=== PATIENT | male | born 1960 | race Caucasian/White ===

== ENCOUNTER 2016-08-03 20:22 | Emergency (ER) | payer OTHER ==
[2016-08-03 20:29] VITALS: BP 184/96
[2016-08-03] MEDS ORDERED: BUFFERED LIDOCAINE 10 ML SYRINGE ONE (20:40)
[2016-08-03] MEDS ORDERED: HYDROcod/ACET 5/325 Prepack 6 PO STA (20:55)
[2016-08-03] MEDS ORDERED: CEPHALEXIN 250 MG Prepack 8 PO STA (20:56)
--- NOTE | 2016-08-03 20:58 | ED Physician Documentation ---
PD HPI SKIN - Stated complaint Stated Complaint: CYST ON BACK - Chief complaint Chief Complaint: Wound - History obtained from History obtained from: Patient - History of Present Illness Timing - onset: Other (He has a recurrent sebaceous cyst on the left flank that gets infected about every 6 years and needs to be incised and drained at that point. He denies any fevers. He has been bothering him for about a week and a half.) Review of Systems Constitutional: denies: Fever, Chills Nose: reports: Reviewed and negative Throat: reports: Reviewed and negative Cardiac: reports: Reviewed and negative PD PAST MEDICAL HISTORY - Past Medical History Cardiovascular: Hypertension Endocrine/Autoimmune: Type 2 diabetes Musculoskeletal: Gout, Chronic back pain - Past Surgical History Past Surgical History: Yes Ortho: ACL reconstruction, Spine surgery - Present Medications Home Medications: Ambulatory Orders Medication Instructions Recorded Confirmed Allopurinol DAILY 10/11/13 10/11/13 Clonidine HCl 0.3 mg DAILY 10/11/13 10/11/13 Dexamethasone [Decadron] 4 mg PO DAILY #5 tablet 10/11/13 Hydrochlorothiazide 25 mg DAILY 10/11/13 10/11/13 Lisinopril 80 mg DAILY 10/11/13 10/11/13 Metformin HCl 500 mg BID 10/11/13 10/11/13 Methocarbamol [Robaxin] 500 mg PO Q6H PRN #30 tablet 10/11/13 Oxycodone HCl/Acetaminophen 1 each PO Q6H PRN #25 tablet 10/11/13 [Percocet 5-325 mg Tablet] Simvastatin 40 mg DAILY 10/11/13 10/11/13 Cephalexin [Keflex] 500 mg PO QID #40 capsule 08/03/16 - Allergies Allergies/Adverse Reactions: Allergies Allergy/AdvReac Type Severity Reaction Status Date / Time Penicillins Allergy Rash Verified 10/11/13 15:17 - Social History Does the pt smoke?: No Smoking Status: Never smoker Does the pt drink ETOH?: No Does the pt have substance abuse?: No PD ED PE NORMAL - Vitals Vital signs reviewed: Yes - General General: Alert and oriented X 3, No acute distress - Derm Derm: Other (On the left upper flank there is a very large pointed sebaceous cyst with overlying cellulitis) - Neuro Neuro: Alert and oriented X 3, Normal speech Results - Vitals Vitals: Vital Signs - 24 hr 08/03/16 20:25 Temperature 36.5 C Heart Rate 89 Respiratory 17 Rate Blood Pressure 184/96 H O2 Saturation 97 Oxygen O2 Source Room air - Labs Labs: Microbiology 08/03/16 21:06 Wound Culture - Preliminary Abscess Procedures - Abscess I&D (location) trunk Preparation: Betadine, Lidocaine 1% Incision: Incised with scalpel, Purulent drainage, Loculations broken, Culture obtained. No: Packed (pt refused) Other: Pt tolerated well, Dressing applied, Antibiotic prescribed Departure - Departure Disposition: Home, Self Care Clinical Impression: Sebaceous cyst Condition: Good Record reviewed to determine appropriate education?: Yes Instructions: ED Cyst Sebaceous Infec IandD Prescriptions: Cephalexin [Keflex] 500 mg PO QID #40 capsule Comments: Wound check with your physician in 2-4 days, return if worse, if you run a fever. As we discussed we will culture your wound, this results should be done in 48- 72 hours. If an antibiotic change is necessary we will call you. Return if worse in the meantime, especially if you develop increased pain or fevers or cannot keep down the medication. Your blood pressure was elevated today on check in to the emergency department. This does not mean that you have hypertension, it is a common phenomenon to check into the emergency department and have elevated blood pressure. I recommend that you see your primary care physician within the week to have it rechecked when you're feeling better. Discharge Date/Time: 08/03/16 21:11
[2016-08-03] MEDS ORDERED: CEPHALEXIN 250 MG Prepack 8 PO ONE (21:06)
[2016-08-03] MEDS ORDERED: HYDROcod/ACET 5/325 Prepack 6 PO ONE (21:06)
== END 2016-08-03 21:11 | disposition home or self-care (01) ==
LOC: ED 20:22
DX: L72.3 Sebaceous cyst (principal); R03.0 Elevated blood-pressure reading, without diagnosis of hypertension; E11.9 Type 2 diabetes mellitus without complications; Z79.84 Long term (current) use of oral hypoglycemic drugs; M10.9 Gout, unspecified
CPT/HCPCS: 10060; 87070; 87205; 99283

== ENCOUNTER 2017-06-12 13:40 | Inpatient (IN) | payer OTHER ==
--- NOTE | 2017-06-12 13:53 | ED Physician Documentation ---
PD HPI DYSPNEA - Stated complaint Stated Complaint: SOA - History obtained from History obtained from: Patient - History of Present Illness Timing - onset: Other (3 weeks chest cold with non productive cough. Increasing SOA. No travel or hemoptysis. No H/O Cardiopulmonary dz. + chronic B pedal edema. No fevers.) Review of Systems Constitutional: denies: Fever, Chills Nose: reports: Rhinorrhea / runny nose Throat: denies: Sore throat Cardiac: denies: Chest pain / pressure Respiratory: reports: Dyspnea, Cough GI: denies: Abdominal Pain, Nausea, Vomiting PD PAST MEDICAL HISTORY - Past Medical History Cardiovascular: Hypertension Endocrine/Autoimmune: Type 2 diabetes Musculoskeletal: Gout, Chronic back pain - Past Surgical History Past Surgical History: Yes Ortho: ACL reconstruction, Spine surgery - Present Medications Home Medications: Ambulatory Orders Medication Instructions Recorded Confirmed Allopurinol 300 mg DAILY 10/11/13 10/11/13 Hydrochlorothiazide 25 mg DAILY 10/11/13 10/11/13 Lisinopril 40 mg DAILY 10/11/13 10/11/13 Metformin HCl 1,000 mg BID 10/11/13 10/11/13 Aspirin 81 mg PO DAILY 06/12/17 06/12/17 Atorvastatin Calcium 40 mg DAILY 06/12/17 06/12/17 Potassium Gluconate 550 mg PO 06/12/17 - Allergies Allergies/Adverse Reactions: Allergies Allergy/AdvReac Type Severity Reaction Status Date / Time Penicillins Allergy Rash Verified 06/12/17 13:53 - Social History Does the pt smoke?: No Smoking Status: Never smoker Does the pt drink ETOH?: No Does the pt have substance abuse?: No PD ED PE NORMAL - Vitals Vital signs reviewed: Yes - General General: Alert and oriented X 3, No acute distress - HEENT HEENT: PERRL, EOMI - Neck Neck: Supple, no meningeal sign, No bony TTP - Cardiac Cardiac: RRR, No murmur - Respiratory Respiratory: Other (RML Wheeze/diminished) - Abdomen Abdomen: Normal bowel sounds, Soft, Non tender - Back Back: No CVA TTP, No spinal TTP - Extremities Extremities: No calf tenderness / cord, Other (3+ B pedal edema, ptting.) - Neuro Neuro: Alert and oriented X 3, Normal speech - Psych Psych: Normal mood, Normal affect Results - Vitals Vitals: Vital Signs - 24 hr 04/24/18 13:41 Temperature 35.9 C L Heart Rate 105 H Respiratory 24 Rate Blood Pressure 158/108 H O2 Saturation 96 Oxygen O2 Source Room air - EKG (time done) 1353 Rate: Rate (enter#) (100) Rhythm: Sinus tachycardia Sheridan: Normal Intervals: RBBB, Other (LAFB) QRS: Normal Ischemia: Normal ST segments Compare to prior EKG: Old EKG unavailable Computer interpretation: Agree with computer - Labs Labs: Laboratory Tests 06/12/17 06/12/17 06/12/17 14:05 14:05 14:05 WBC 10.6 RBC 4.71 Hgb 13.4 L Hct 41.2 L MCV 87.5 MCH 28.5 MCHC 32.5 RDW 15.2 H Plt Count 257 MPV 7.8 Neut # 8.0 H Lymph # 1.6 [place] # 0.9 Eos # 0.1 Baso # 0.0 Absolute Nucleated RBC 0.00 Nucleated RBC % 0.0 Sodium 140 Potassium 3.6 Chloride 104 Carbon Dioxide 27 Anion Gap 9.0 BUN 21 H Creatinine 0.9 Estimated GFR (MDRD) 88 L Glucose 142 H Calcium 9.3 Total Bilirubin 0.6 AST 24 ALT 20 Alkaline Phosphatase 70 Troponin I < 0.04 B-Natriuretic Peptide Total Protein 7.6 Albumin 4.2 Globulin 3.4 Albumin/Globulin Ratio 1.2 Lipase 29 06/12/17 14:05 WBC RBC Hgb Hct MCV MCH MCHC RDW Plt Count MPV Neut # Lymph # [place] # Eos # Baso # Absolute Nucleated RBC Nucleated RBC % Sodium Potassium Chloride Carbon Dioxide Anion Gap BUN Creatinine Estimated GFR (MDRD) Glucose Calcium Total Bilirubin AST ALT Alkaline Phosphatase Troponin I B-Natriuretic Peptide 620 H Total Protein Albumin Globulin Albumin/Globulin Ratio Lipase - Rads (name of study) 2v chest Radiology: EMP read contemporaneously (Mild right basilar pneumonia with cardiomegaly and evidence of CHF.) PD MEDICAL DECISION MAKING - ED course ED course: 1345- had 7 beat run of vtach on monitor, Patient said he felt like it "burped on the inside." No syncope. This is a 56-year-old gentleman with morbid obesity and type 2 diabetes on oral medications who presents with shortness of breath and nonproductive cough, some evidence of CHF on exam which is limited by morbid obesity. His x-ray and BNP corroborates this, potentially a small pneumonia as well. He was cultured up and given Rocephin and Zithromax. For the V. tach and because I am giving him Lasix he was given IV potassium and he was given IV Lasix as well and topical Nitropaste. Spoke with Dr. Marshall for admission at 3:45 PM. Departure - Departure Disposition: [facility] DC/Xfer Clinical Impression: Congestive heart failure Qualifiers: Heart failure type: unspecified Heart failure chronicity: acute Qualified Code( s): I50.9 - Heart failure, unspecified Pneumonia Qualifiers: Pneumonia type: due to unspecified organism Laterality: right Lung location: lower lobe of lung Qualified Code(s): J18.1 - Lobar pneumonia, unspecified organism Condition: Serious
[2017-06-12 14:11] LABS: BASOPHILS % (AUTO) 0.3 %; EOSINOPHILS # (AUTO) 0.1 10^3/uL (0.0-0.7); EOSINOPHILS % (AUTO) 1.2 %; HGB - HEMOGLOBIN 13.4 g/dL (14.0-18.0); LYMPHOCYTES # (AUTO) 1.6 10^3/uL (1.5-3.5); LYMPHOCYTES % (AUTO) 15.1 %; MEAN CORPUSCULAR HEMOGLOBIN 28.5 pg (27.0-31.0); MEAN CORPUSCULAR HGB CONC 32.5 g/dL (32.0-36.0); MEAN CORPUSCULAR VOLUME 87.5 fL (80.0-94.0); MEAN PLATELET VOLUME 7.8 fL (7.4-11.4); MONOCYTES # (AUTO) 0.9 10^3/uL (0.0-1.0); MONOCYTES % (AUTO) 8.3 %; NEUTROPHILS % (AUTO) 75.1 %; PLT - PLATELET COUNT 257 10^3/uL (130-450); RED BLOOD COUNT 4.71 10^6/uL (4.70-6.10); RED CELL DISTRIBUTION WIDTH 15.2 % (12.0-15.0); WHITE BLOOD COUNT 10.6 x10^3/uL (4.8-10.8)
[2017-06-12 14:24] LABS: ALBUMIN 4.2 g/dL (3.2-5.5); ALBUMIN/GLOBULIN RATIO 1.2 (1.0-2.2); BILIRUBIN,TOTAL 0.6 mg/dL (0.2-1.0); CALCIUM 9.3 mg/dL (8.5-10.3); CREATININE 0.9 mg/dL (0.6-1.2); TOTAL PROTEIN 7.6 g/dL (6.7-8.2)
[2017-06-12] MEDS ORDERED: POTASSIUM CHLOR 10 MEQ/100 ML 10 MEQ/100 ML BAG IV ONE (14:41)
--- NOTE | 2017-06-12 15:25 | XRAY Report ---
EXAM: CHEST RADIOGRAPHY EXAM DATE: 06/12/2017 02:52 PM. CLINICAL HISTORY: Cough dyspnea. COMPARISON: None. TECHNIQUE: 2 views. FINDINGS: Lungs/Pleura: Hyperexpanded with flat diaphragm compatible with COPD or asthma. Small pleural effusio ns. Atelectasis versus infiltrate in right base. No consolidation or pneumothorax. Mediastinum: Moderate cardiomegaly with diffuse vascular fullness and cephalic redistribution. Other: Degenerative changes. IMPRESSION: Congestive failure, possible right basilar infiltrate. [facility] Referring Provider Line: [phone] SITE ID: [id number]
[2017-06-12] MEDS ORDERED: NITROGLYCERIN 2% PASTE TOP STA (15:39)
[2017-06-12] MEDS ORDERED: AZITHROMYCIN INJ 500 MG in SODIUM CHLORIDE 0.9% 250 ML IV STA (15:39)
[2017-06-12] MEDS ORDERED: FUROSEMIDE 40 MG/4 ML VIAL IVP STA (15:39)
[2017-06-12] MEDS ORDERED: cefTRIAXone 2 GM in SODIUM CHLORIDE 0.9% MINIBAG 100 ML IV STA (15:39)
[2017-06-12] MEDS ORDERED: PROCHLORPERAZINE 10 MG/2 ML VIAL IVP PRN (16:28)
[2017-06-12] MEDS ORDERED: ACETAMINOPHEN 325 MG TABLET PO PRN (16:28)
[2017-06-12] MEDS ORDERED: TEMAZEPAM 15 MG CAPSULE PO PRN (16:28)
[2017-06-12] MEDS ORDERED: MORPHINE 2 MG/ML SYRINGE IVP PRN (16:28)
[2017-06-12] MEDS ORDERED: SODIUM CHLORIDE FLUSH 0.9% 10 ML SYRINGE IVP PRN (16:28)
[2017-06-12] MEDS: cefTRIAXone 2 GM in SODIUM CHLORIDE 0.9% MINIBAG 100 ML IV SCH (18:38)
[2017-06-12] MEDS: SODIUM CHLORIDE FLUSH 0.9% 10 ML SYRINGE IVP SCH (18:39)
[2017-06-12] MEDS: AZITHROMYCIN INJ 500 MG in SODIUM CHLORIDE 0.9% 250 ML IV SCH (19:23)
[2017-06-12] MEDS: INSULIN ASPART 300 UNIT/3 ML PEN SUBQ SCH ×2 (20:34→20:35)
[2017-06-12] MEDS: FUROSEMIDE 40 MG/4 ML VIAL IVP SCH (21:57)
[2017-06-12] MEDS: ATORVASTATIN 40 MG TABLET PO SCH (21:57)
[2017-06-13 05:36] LABS: CALCIUM 8.8 mg/dL (8.5-10.3); MAGNESIUM 1.7 mg/dL (1.7-2.8)
[2017-06-13 06:08] LABS: HEMOGLOBIN A1C 0.75 g/dL; HEMOGLOBIN A1C % 7.1 % (4.6-6.2)
[2017-06-13] MEDS: SODIUM CHLORIDE FLUSH 0.9% 10 ML SYRINGE IVP SCH ×3 (06:42→16:01)
[2017-06-13] MEDS: FUROSEMIDE 40 MG/4 ML VIAL IVP SCH ×2 (06:42→13:40)
[2017-06-13] MEDS ORDERED: POTASSIUM CHLORIDE 20 MEQ TABLET PO SCH (08:40)
[2017-06-13] MEDS: INSULIN ASPART 300 UNIT/3 ML PEN SUBQ SCH ×4 (08:44→20:45)
[2017-06-13] MEDS ORDERED: cefTRIAXone 2 GM VIAL ONE (09:08)
[2017-06-13] MEDS: ALLOPURINOL 100 MG TABLET PO SCH (09:10)
[2017-06-13] MEDS: FAMOTIDINE 20 MG TABLET PO SCH (09:11)
[2017-06-13] MEDS: ASPIRIN CHEW 81 MG TABLET PO SCH (09:11)
[2017-06-13] MEDS: LISINOPRIL 20 MG TABLET PO SCH (09:11)
[2017-06-13] MEDS: cefTRIAXone 2 GM in SODIUM CHLORIDE 0.9% MINIBAG 100 ML IV SCH (09:12)
[2017-06-13] MEDS: ENOXAPARIN 40 MG/0.4 ML SYRINGE SUBQ SCH (09:12)
[2017-06-13] MEDS: POLYETHYLENE GLYCOL 3350 17 GM PACKET PO SCH (09:13)
[2017-06-13] MEDS: AZITHROMYCIN INJ 500 MG in SODIUM CHLORIDE 0.9% 250 ML IV SCH (10:09)
[2017-06-13] MEDS: IBUPROFEN 600 MG TABLET PO SCH ×2 (10:41→19:07)
[2017-06-13] MEDS: SACCHAROMYCES BOULARDII 250 MG CAPSULE PO SCH ×2 (11:22→17:01)
--- NOTE | 2017-06-13 16:20 | PROVIDER PROGRESS NOTE ---
Assessment/Plan - Problem List (1) Acute systolic (congestive) heart failure Assessment/Plan: Pt denies ever having a cardiac eval such as Echo, EKGs or stress test. He denies anginal symptoms. There is a FH of his mother having PVD and with a brain aneurysm. Will add Coreg and Spironolactone, continue Lisinipril, statin and ASA. Lasix iv will be changed to po. Daily weights are still pending. I will reach out to Cardiology for possible transfer for cor. angio vs outpt angio and Zoll wearable defibrillator til then. I spent 30 min in room explaining the diagnosis and plan and answered all his qquestions to his satisfaction. (2) Community acquired pneumonia Assessment/Plan: No desats on R.A. Continue empiric antibiotics. (3) Diabetes mellitus Qualifiers: Diabetes mellitus type: type 2 Assessment/Plan: Pt shows good control by A1c of 7.1 Pt off Metformin in case he needs an imaging eval with dye load. Continue carb-controlled diet and ss Insulin while here. - Current Meds Current Meds: Current Medications Generic Name Dose Route Start Last Admin Trade Name Freq PRN Reason Stop Dose Admin Acetaminophen 650 mg 06/12/17 16:28 06/13/17 09:11 Tylenol PO 650 mg Q4HR PRN Administration Pain or Fever > 38C (100.4F) Allopurinol 300 mg 06/13/17 09:00 06/13/17 09:10 Zyloprim PO 300 mg DAILY KAVIN Administration Aspirin 81 mg 06/13/17 09:00 06/13/17 09:11 St Ramo Aspirin PO 81 mg DAILY KAVIN Administration Atorvastatin Calcium 40 mg 06/12/17 21:00 06/12/17 21:57 Lipitor PO 40 mg QPM KAVIN Administration Enoxaparin Sodium 40 mg 06/13/17 09:00 06/13/17 09:12 Lovenox SUBQ 40 mg DAILY KAVIN Administration Famotidine 20 mg 06/13/17 09:00 06/13/17 09:11 Pepcid PO 20 mg DAILY KAVIN Administration Azithromycin 500 mg/ Sodium 250 mls @ 250 mls/hr 06/12/17 18:00 06/13/17 11: 09 Chloride IV Infused DAILY@1000 KAVIN Infusion Ceftriaxone Sodium 2 gm/ 100 mls @ 200 mls/hr 06/12/17 17:00 06/13/17 10:08 Sodium Chloride IV Infused DAILY KAVIN Infusion Ibuprofen 600 mg 06/13/17 12:00 06/13/17 10:41 Motrin PO Not Given Q6HR [facility] Insulin Aspart 1 - 5 unit 06/12/17 17:00 06/13/17 11:22 Novolog SUBQ Not Given 0800,1200,1700,2100 [facility] Protocol Lisinopril 40 mg 06/13/17 09:00 06/13/17 09:11 Zestril PO 40 mg DAILY KAVIN Administration Polyethylene Glycol 17 gm 06/13/17 09:00 06/13/17 09:13 Miralax PO Not Given DAILY [facility] Saccharomyces Boulardii 250 mg 06/13/17 11:00 06/13/17 11:22 Florastor PO 250 mg BIDWM KAVIN Administration Sodium Chloride 10 ml 06/12/17 16:28 06/13/17 13:41 Normal Saline Flush 0.9% IVP 10 ml PRN PRN Administration NEEDED PER PROVIDER ORDERS Sodium Chloride 10 ml 06/12/17 17:00 06/13/17 16:01 Normal Saline Flush 0.9% IVP 10 ml 0100,0900,1700 KAVIN Administration - Lab Result Fish Bone Diagrams: 06/12/17 14:05 06/13/17 04:45 - Additional Planning My Orders: My Active Orders 06/12/17 16:28 Activity Orders [RC] Routine Fluid Restriction [RC] QSHIFT IO [RC] IOSHIFT Initiate Bowel Care Protocol [RC] .protocol Initiate Line Care Protocol [RC] .protocol Initiate Personal Care Protoco [RC] .protocol Oxygen Therapy [RC] .PRN Vital Signs [RC] Q4HR Acetaminophen [Tylenol] 650 mg PO Q4HR PRN Morphine Inj [Morphine] 2 mg IVP Q2H PRN Prochlorperazine Inj [Compazine Inj] 10 mg IVP Q6HR PRN Sodium Chloride Flush 0.9% [Normal Saline Flush 0.9%] 10 ml IVP PRN PRN Temazepam [Restoril] 15 mg PO QPM PRN Code Status [OTHERS] Routine Condition of Patient [OTHERS] Routine DVT Prophylaxis [OTHERS] Routine 06/12/17 16:30 Daily Weight [RC] 0600 IV Insert [RC] .ONCE Telemetry- [RC] Q4HR 06/12/17 16:51 Blood Glucose Checks - Eating [RC] 0800,1200,1700,2100 Initiate Hypoglycemia Protocol [RC] .protocol 06/12/17 17:00 Insulin Aspart [NovoLOG] 1 - 5 unit SUBQ 0800,1200,1700,2100 Sodium Chloride Flush 0.9% [Normal Saline Flush 0.9%] 10 ml IVP 0100,0900, 1700 cefTRIAXone [Rocephin] 2 gm Sodium Chloride 0.9% Minibag [Normal Saline 0.9% Minibag] 100 ml IV DAILY 06/12/17 18:00 Azithromycin Inj [Zithromax Inj] 500 mg Sodium Chloride 0.9% [Normal Saline 0.9%] 250 ml IV DAILY@1000 06/12/17 21:00 Atorvastatin [Lipitor] 40 mg PO QPM 06/12/17 Dinner Carb-controlled Diet [DIET] 06/13/17 Echo Transthoracic Complete [ECHO] Routine 06/13/17 09:00 Allopurinol [Zyloprim] 300 mg PO DAILY Aspirin Chewable [St Ramo Aspirin] 81 mg PO DAILY Enoxaparin [Lovenox] 40 mg SUBQ DAILY Famotidine [Pepcid] 20 mg PO DAILY Lisinopril [Zestril] 40 mg PO DAILY Polyethylene Glycol 3350 [Miralax] 17 gm PO DAILY 06/13/17 11:00 Saccharomyces Boulardii [Florastor] 250 mg PO BIDWM 06/13/17 12:00 Ibuprofen [Motrin] 600 mg PO Q6HR 06/13/17 17:00 Carvedilol [Coreg] 12.5 mg PO BID Spironolactone [Aldactone] 25 mg PO DAILY 06/14/17 09:00 FUROSEMIDE INJ 40mg VIAL [LASIX INJ 40 mg VIAL] 40 mg IVP DAILY Subjective - Subjective Patient Reports: Feeling Better, Resting Comfortably, Other (Pt still orthopneic overnight. Also, he couldn't sleep due to worry over his unknown diagnosis.) Nursing Reports: Other (Pt able to ambulate in room without SOB or desats.) Objective Vital Signs: Vital Signs - 24 hr 06/12/17 06/12/17 06/12/17 16:33 18:35 23:55 Temperature 36.6 C 36.9 C Heart Rate 92 Heart Rate [ 93 84 Brachial] Respiratory 21 22 20 Rate Blood Pressure 163/103 H Blood Pressure 137/83 H 135/81 H [Right Brachial artery] O2 Saturation 93 94 93 06/13/17 06/13/17 06/13/17 05:24 08:22 11:30 Temperature 36.9 C 36.4 C L Heart Rate 108 H Heart Rate [ 82 76 Brachial] Respiratory 20 18 Rate Blood Pressure Blood Pressure 135/84 H 135/92 H [Right Brachial artery] O2 Saturation 95 98 06/13/17 13:00 Temperature 36.7 C Heart Rate Heart Rate [ 74 Brachial] Respiratory 16 Rate Blood Pressure Blood Pressure 122/99 H [Right Brachial artery] O2 Saturation 94 Oxygen O2 Source Room air I&O (Last 24 Hrs): Intake and Output Totals x24h 06/11/17 06/12/17 06/13/17 23:59 23:59 23:59 Intake Total 1300 950 Output Total 1625 Balance 1300 -675 General: Alert, No acute distress HEENT: Mucous membr. moist/pink Neck: Supple Neuro: Non Focal Cardiovascular: Regular rate, No murmurs Respiratory: Breath sounds nml Abdomen: Soft, Other (Obese with pannus) Extremities: Other (2+ edema to knees) - Results Results: Laboratory Results WBC 10.6 x10^3/uL (4.8-10.8) 06/12/17 14:05 RBC 4.71 10^6/uL (4.70-6.10) 06/12/17 14:05 Hgb 13.4 g/dL (14.0-18.0) L 06/12/17 14:05 Hct 41.2 % (42.0-52.0) L 06/12/17 14:05 MCV 87.5 fL (80.0-94.0) 06/12/17 14:05 MCH 28.5 pg (27.0-31.0) 06/12/17 14:05 MCHC 32.5 g/dL (32.0-36.0) 06/12/17 14:05 RDW 15.2 % (12.0-15.0) H 06/12/17 14:05 Plt Count 257 10^3/uL (130-450) 06/12/17 14:05 MPV 7.8 fL (7.4-11.4) 06/12/17 14:05 Neut # 8.0 10^3/uL (1.5-6.6) H 06/12/17 14:05 Lymph # 1.6 10^3/uL (1.5-3.5) 06/12/17 14:05 [place] # 0.9 10^3/uL (0.0-1.0) 06/12/17 14:05 Eos # 0.1 10^3/uL (0.0-0.7) 06/12/17 14:05 Baso # 0.0 10^3/uL (0.0-0.1) 06/12/17 14:05 Absolute Nucleated RBC 0.00 x10^3/uL 06/12/17 14:05 Nucleated RBC % 0.0 /100WBC 06/12/17 14:05 Sodium 140 mmol/L (135-145) 06/13/17 04:45 Potassium 3.2 mmol/L (3.5-5.0) L 06/13/17 04:45 Chloride 101 mmol/L (101-111) 06/13/17 04:45 Carbon Dioxide 30 mmol/L (21-32) 06/13/17 04:45 Anion Gap 9.0 (6-13) 06/13/17 04:45 BUN 20 mg/dL (6-20) 06/13/17 04:45 Creatinine 1.0 mg/dL (0.6-1.2) 06/13/17 04:45 Estimated GFR (MDRD) 78 (>89) L 06/13/17 04:45 Glucose 124 mg/dL (70-100) H 06/13/17 04:45 POC Whole Bld Glucose 131 mg/dL (70 - 100) H 06/12/17 20:30 Glycated Hemoglobin 7.1 % (4.6-6.2) H 06/13/17 04:45 Estim Average Glucose 157 (70-100) H 06/13/17 04:45 Calcium 8.8 mg/dL (8.5-10.3) 06/13/17 04:45 Magnesium 1.7 mg/dL (1.7-2.8) 06/13/17 04:45 Total Bilirubin 0.6 mg/dL (0.2-1.0) 06/12/17 14:05 AST 24 IU/L (10-42) 06/12/17 14:05 ALT 20 IU/L (10-60) 06/12/17 14:05 Alkaline Phosphatase 70 IU/L (42-121) 06/12/17 14:05 Troponin I < 0.04 ng/mL (<0.49) 06/13/17 04:45 B-Natriuretic Peptide 620 pg/mL (5-100) H 06/12/17 14:05 Total Protein 7.6 g/dL (6.7-8.2) 06/12/17 14:05 Albumin 4.2 g/dL (3.2-5.5) 06/12/17 14:05 Globulin 3.4 g/dL (2.1-4.2) 06/12/17 14:05 Albumin/Globulin Ratio 1.2 (1.0-2.2) 06/12/17 14:05 Lipase 29 U/L (22-51) 06/12/17 14:05
[2017-06-13] MEDS ORDERED: PERFLUTREN LIPID MICROSPHERES 1.65 MG/1.5 ML VIAL IVP ONE (16:30)
[2017-06-13] MEDS: CARVEDILOL 12.5 MG TABLET PO SCH ×2 (17:14→20:04)
[2017-06-13] MEDS: SPIRONOLACTONE 25 MG TABLET PO SCH (17:14)
--- NOTE | 2017-06-13 19:34 | HISTORY & PHYSICAL EXAMINATION ---
DATE OF SERVICE: 06/12/2017 Physician: Francoise Dexter MD HISTORY OF PRESENT ILLNESS: This is a 56-year-old white male with a history of morbid obesity, body mass index of 51, diabetes mellitus, on Metformin only, history of gout, and hypertension. The patient has had ACL reconstruction of the left knee and a spine surgery. The patient presents with a 3-week history of a "chest cold" with nonproductive cough. There has been no fever. He noticed dyspnea on walking and then this progressed to orthopnea and PND at rest over the last 1 week. In the emergency room, he was found to have elevated BNP suggesting CHF and signs of a small infiltrate on chest x-ray suggesting pneumonia. The patient is being admitted for his respiratory complaints. PAST MEDICAL HISTORY: Obesity, diabetes on Metformin, hypertension, gout, knee surgery, spine surgery. REVIEW OF SYSTEMS: The patient denies ever having chest pain or anginal equivalents. Denies palpitations, syncope. He does describe leg edema on the left chronically after the knee surgery, but now bilateral over the last several months. He has never had stress testing, an Echo, or even an EKG. A comprehensive review of systems was performed and the pertinent positives are above, all the rest are negative. FAMILY HISTORY: Mother had peripheral vascular disease and of a brain aneurysm. No other heart disease in the family. No other diabetes in the family. No inherited diseases. SOCIAL HISTORY: The patient never smoked cigarettes, he drinks rare alcohol, he denies any illicit drug use. 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 MEDICATIONS 1. Allopurinol 300 mg daily. 2. HCTZ 25 mg daily. 3. Lisinopril 40 mg daily. 4. Metformin 1000 mg b.i.d. 5. Aspirin 81 mg daily. 6. Atorvastatin 40 mg daily. 7. Potassium gluconate 550 mg daily. ALLERGIES: PENICILLIN, WHICH CAUSES A RASH. PHYSICAL EXAMINATION GENERAL: Obese, middle-aged white male. He is in no distress at rest. VITAL SIGNS: Blood pressure 150/80, heart rate is in the 70s to 100 in sinus rhythm, afebrile. HEENT: Unremarkable. NECK: Obese, therefore I cannot rule out JVD. There is no carotid bruit. CHEST: Diminished breath sounds at the bases, but no rales or wheezes. HEART: Heart sounds are distant. No audible murmur. ABDOMEN: Obese with a pannus. No tenderness. Normal bowel sounds. No organomegaly. EXTREMITIES: 2+ edema to the knees bilaterally. No clubbing or cyanosis. NEUROLOGIC: Intact. LABORATORIES: Normal electrolytes. Normal BUN and creatinine. Glucose 142, magnesium 1.9. BNP 620. Troponin less than 0.04. Lipase normal. CBC has a white count of 10.6 with a left shift, hemoglobin 13.4, platelet count normal at 257. No INR was done. STUDIES Chest x-ray: CHF and a possible right basilar infiltrate. EKG: Normal sinus rhythm, right bundle branch block, left anterior fascicular block, poor R-wave progression. No prior EKG available for comparison. Telemetry showed a 6-beat run of monomorphic ventricular tachycardia. IMPRESSION 1. Heart failure, unspecified. 2. Community-acquired pneumonia. 3. Type 2 diabetes, on oral agents without known complications. 4. Ventricular tachycardia seen on telemetry. 5. Morbid obesity with body mass index over 50. PLAN 1. Admit the patient to telemetry and watch his rhythm. 2. Obtain serial troponins to evaluate for an acute myocardial infarction. 3. Obtain an Echo to evaluate left ventricular and right ventricular contractility. 4. Begin diuresis with IV loop diuretic and follow his I's and O's, daily weights, magnesium and potassium and BUN and creatinine. 5. Depending on his findings on Echo, effect of medications, a coronary angiogram could be needed. 6. Begin the patient on empiric ceftriaxone IV and Zithromax IV for community- acquired pneumonia after obtaining blood cultures and sputum cultures if he makes sputum. CODE STATUS: FULL CODE. DEEP VENOUS THROMBOSIS PROPHYLAXIS: Lovenox. ATTESTATION: The patient is expected to be discharged or transferred to another facility within 96 hours: Yes. TD: 06/13/2017 19:32 [facility]
[2017-06-13] MEDS: ATORVASTATIN 40 MG TABLET PO SCH (20:38)
[2017-06-14] MEDS: SODIUM CHLORIDE FLUSH 0.9% 10 ML SYRINGE IVP SCH ×2 (00:02→08:25)
[2017-06-14] MEDS: IBUPROFEN 600 MG TABLET PO SCH (00:08)
[2017-06-14] MEDS ORDERED: IBUPROFEN 600 MG TABLET PO PRN (00:29)
[2017-06-14 05:42] LABS: CALCIUM 8.9 mg/dL (8.5-10.3); CREATININE 0.9 mg/dL (0.6-1.2)
[2017-06-14] MEDS: INSULIN ASPART 300 UNIT/3 ML PEN SUBQ SCH ×2 (07:52→11:44)
[2017-06-14] MEDS: ALLOPURINOL 100 MG TABLET PO SCH (08:21)
[2017-06-14] MEDS: ENOXAPARIN 40 MG/0.4 ML SYRINGE SUBQ SCH (08:21)
[2017-06-14] MEDS: CARVEDILOL 12.5 MG TABLET PO SCH (08:21)
[2017-06-14] MEDS: FAMOTIDINE 20 MG TABLET PO SCH (08:21)
[2017-06-14] MEDS: ASPIRIN CHEW 81 MG TABLET PO SCH (08:21)
[2017-06-14] MEDS: LISINOPRIL 20 MG TABLET PO SCH (08:21)
[2017-06-14] MEDS: SACCHAROMYCES BOULARDII 250 MG CAPSULE PO SCH (08:21)
[2017-06-14] MEDS: cefTRIAXone 2 GM in SODIUM CHLORIDE 0.9% MINIBAG 100 ML IV SCH (08:22)
[2017-06-14] MEDS: POLYETHYLENE GLYCOL 3350 17 GM PACKET PO SCH (08:25)
[2017-06-14] MEDS: SPIRONOLACTONE 25 MG TABLET PO SCH (08:25)
[2017-06-14] MEDS ORDERED: FUROSEMIDE 40 MG/4 ML VIAL IVP SCH (09:00)
[2017-06-14] MEDS: AZITHROMYCIN INJ 500 MG in SODIUM CHLORIDE 0.9% 250 ML IV SCH (09:44)
[2017-06-14 10:07] LABS: CALCIUM 8.5 mg/dL (8.5-10.3); CREATININE 0.9 mg/dL (0.6-1.2); MAGNESIUM 1.8 mg/dL (1.7-2.8)
--- NOTE | 2017-06-14 14:40 | Discharge Plan ---
Discharge Plan Disposition: 02 Transfer Acute Care Hosp Condition: Serious Instruction Topics: Diabetes Heart Disease, Heart Failure Warning Signs, Heart Failure Tracking Weight, Hyperglycemia, Hypoglycemia, Diabetes Carbs, Diabetes Inspect Feet, Heart Failure Diet Changes No Smoking: If you smoke, Please STOP! Call for help. Follow-up with: OBINNA CARRIZALES [Primary Care Provider] -
[2017-06-14] MEDS ORDERED: POTASSIUM CHLORIDE 20 MEQ TABLET PO SCH (15:56)
[2017-06-14 16:10] VITALS: BP 111/69
[2017-06-15] MEDS ORDERED: FUROSEMIDE 20 MG TABLET PO SCH (09:00)
[2017-06-15] MEDS ORDERED: LISINOPRIL 20 MG TABLET PO SCH (09:00)
--- NOTE | 2017-06-17 23:59 | DISCHARGE SUMMARY ---
Physician: Francoise Dexter MD DATE OF ADMISSION: 06/12/2017 DATE OF DISCHARGE: 06/14/2017 HISTORY OF PRESENT ILLNESS: This is a 56-year-old white male with a history of morbid obesity with a BMI of 51, diabetes on metformin, history of gout, and hypertension, and old ACL reconstruction of the left knee and spine surgery. Patient presented with a 3- week history of persistent "chest cold" with a nonproductive cough and then approximately 1 week of dyspnea on exertion and several days of PND and orthopnea. He was found to have a BNP of 620 and chest x-ray consistent with CHF versus infiltrate and admitted for management. HOSPITAL COURSE AND DISCHARGE DIAGNOSES 1. Acute systolic heart failure, first episode (ACC/AHA grade 4 and [place] Heart Association class IV). The patient was started on diuresis and had rapid improvement in PND and orthopnea. An Echo was performed that showed moderate to severe LV enlargement with end-diastolic dimension of 8.4 cm, severe global hypokinesis with EF less than 20% along with 4-chamber dilatation and mildly impaired RV function. PA pressure was calculated at 67 mmHg. The patient was started on carvedilol, his Lisinopril was continued, he was put on Spironolactone, his aspirin was continued. The patient had troponins cycled and showed not detectable values. I contacted the cardiology department at [facility] in [place] and he was accepted in transfer by Dr. Odom of Cardiology for coronary angiography, cardiac catheterization, possible defibrillator placement and further cardiac management and he was transferred via ambulance with ACLS protocol. 2. Dilated cardiomyopathy. This is a new diagnosis for this man, management is as in #1 above. 3. Community-acquired pneumonia. His infiltrate was treated with empiric antibiotics of IV Zithromax and IV ceftriaxone. Blood cultures showed no growth and he was unable to produce a sputum sample. 4. Ventricular tachycardia. Patient showed at least 3 separate episodes of 6- 7 beat runs of monomorphic V-tach. His potassium and magnesium were monitored and corrected as needed. 5. Mobitz II second-degree heart block. The day after starting Coreg 12.5 p.o. b.i.d., there were 2 runs of Wenckebach then Mobitz II second-degree heart block causing ventricular rates of 40 and 50, and therefore his Coreg was discontinued just prior to transfer by ACLS ambulance to [place]. 6. Diabetes mellitus. Patient was on diabetic diet and insulin coverage, his Glucophage was not given while here for preparation for dye use for imaging. He voiced realization that he needed more aggressive weight loss. His A1c value was 7.1 on admission. LABORATORY AND IMAGING: Reviewed and summarized above. ALLERGIES: PENICILLIN. MEDICATIONS AT THE TIME OF DISCHARGE 1. Allopurinol 300 mg p.o. daily. 2. Baby aspirin daily. 3. Lipitor 40 mg daily. 4. Metformin on hold. 5. Lisinopril 40 mg p.o. daily. 6. Spironolactone 25 mg every day at noon. 7. Coreg 12.5 p.o. b.i.d. was put on hold. 8. Lasix 40 mg IV, then 20 mg p.o. daily at the time of transfer. 9. The Ceftriaxone and Zithromax could be continued depending on decisions made at the other hospital. PHYSICAL EXAMINATION AT DISCHARGE VITAL SIGNS: Blood pressure 111/69, pulse of 83 in sinus rhythm, afebrile, room air saturation 96%. HEENT: Unremarkable. NECK: Obese. CHEST: Clear. HEART: Sounds distant. BREASTS: Large. ABDOMEN: Obese with a pannus. Normal bowel sounds. Nontender. EXTREMITIES: 1+ edema bilaterally to the mid shins. NEUROLOGIC: Intact. CODE STATUS: FULL CODE. FOLLOWUP: With his PCP and a [employer] will need to follow him after the workup at [facility] in [place]. TIME REQUIRED TO COMPLETE THIS ENTIRE DISCHARGE INCLUDING REVIEW OF MEDICATIONS , RECORDS AND DICTATION: 45 minutes. TD: 06/17/2017 23:58 DARNELL
== END 2017-06-14 16:45 | disposition short-term general hospital (02) | DRG 291 ==
LOC: ED 13:40 → MS2 16:18
PROVIDERS: ADMIT Internal Medicine; ATTEND Internal Medicine
DX: I11.0 Hypertensive heart disease with heart failure (principal); J18.1 Lobar pneumonia, unspecified organism; I47.2 Ventricular tachycardia; Z68.43 Body mass index [BMI] 50.0-59.9, adult; I50.21 Acute systolic (congestive) heart failure; I42.0 Dilated cardiomyopathy; I44.1 Atrioventricular block, second degree; T44.7X5A Adverse effect of beta-adrenoreceptor antagonists, initial encounter; Y92.230 Patient room in hospital as the place of occurrence of the external cause; E11.9 Type 2 diabetes mellitus without complications; E66.01 Morbid (severe) obesity due to excess calories; M10.9 Gout, unspecified; Z79.82 Long term (current) use of aspirin; Z79.84 Long term (current) use of oral hypoglycemic drugs; Z88.0 Allergy status to penicillin; Z82.49 Family history of ischemic heart disease and other diseases of the circulatory system
CPT/HCPCS: 36415; 71046; 80048; 80053; 83036; 83690; 83735; 83880; 84484; 85025; 87040; 93005; 93306; 94761; 96365; 96375; 99283; 99284

== ENCOUNTER 2017-07-11 16:35 | Emergency (ER) | payer OTHER ==
[2017-07-11 20:25] LABS: BASOPHILS # (AUTO) 0.1 10^3/uL (0.0-0.1); BASOPHILS % (AUTO) 0.6 %; EOSINOPHILS # (AUTO) 0.3 10^3/uL (0.0-0.7); EOSINOPHILS % (AUTO) 2.8 %; HGB - HEMOGLOBIN 14.2 g/dL (14.0-18.0); LYMPHOCYTES # (AUTO) 1.9 10^3/uL (1.5-3.5); LYMPHOCYTES % (AUTO) 17.3 %; MEAN CORPUSCULAR HEMOGLOBIN 27.9 pg (27.0-31.0); MEAN CORPUSCULAR HGB CONC 32.8 g/dL (32.0-36.0); MEAN CORPUSCULAR VOLUME 85.1 fL (80.0-94.0); MONOCYTES # (AUTO) 0.9 10^3/uL (0.0-1.0); MONOCYTES % (AUTO) 8.5 %; NEUTROPHILS # (AUTO) 7.9 10^3/uL (1.5-6.6); NEUTROPHILS % (AUTO) 70.8 %; PLT - PLATELET COUNT 250 10^3/uL (130-450); RED BLOOD COUNT 5.09 10^6/uL (4.70-6.10); RED CELL DISTRIBUTION WIDTH 14.8 % (12.0-15.0); WHITE BLOOD COUNT 11.1 x10^3/uL (4.8-10.8)
[2017-07-11 20:34] LABS: INR 1.2 (0.8-1.2)
[2017-07-11] MEDS ORDERED: SODIUM CHLORIDE 0.9% 500 ML IV ONE (20:47)
[2017-07-11 20:48] LABS: CALCIUM 9.5 mg/dL (8.5-10.3)
[2017-07-11 20:59] LABS: ALBUMIN 4.3 g/dL (3.2-5.5); ALBUMIN/GLOBULIN RATIO 1.1 (1.0-2.2); BILIRUBIN,TOTAL 0.8 mg/dL (0.2-1.0); CREATININE 1.3 mg/dL (0.6-1.2); MAGNESIUM 2.2 mg/dL (1.7-2.8); PHOSPHORUS 4.7 mg/dL (2.5-4.6); TOTAL PROTEIN 8.2 g/dL (6.7-8.2)
[2017-07-11] MEDS ORDERED: ALBUTEROL NEB 2.5 MG/3 ML INH STA ×2 (21:24→21:53)
[2017-07-11 21:54] LABS: BILIRUBIN,URINE NEGATIVE (NEGATIVE); GLUCOSE, URINE (UA) NEGATIVE (NEGATIVE); KETONES,URINE (UA) NEGATIVE (NEGATIVE); LEUKOCYTE ESTERASE, URINE NEGATIVE (NEGATIVE); NITRITE,URINE NEGATIVE (NEGATIVE); OCCULT BLOOD,URINE NEGATIVE (NEGATIVE); PH,URINE 5.5 PH (5.0-7.5); PROTEIN,URINE NEGATIVE (NEGATIVE); UROBILINOGEN,URINE 0.2 (NORMAL) E.U./dL (NORMAL)
[2017-07-11 22:04] LABS: CLARITY,URINE CLEAR (CLEAR)
--- NOTE | 2017-07-11 22:07 | ED Physician Documentation ---
History of Present Illness - Stated complaint Stated Complaint: LIGHTHEADED - Chief complaint Chief Complaint: Neuro - History obtained from History obtained from: Patient, Family - History of Present Illness Timing: Yesterday - Additonal information Additional information: Patient is a 57 year old male with a history of cardiomyopathy and an EF of 20% who is presenting to the emergency department for dizziness. According to patient over the last few days he has had a few dizzy spells. He thinks that he might be dehydrated since he has bee so worried about being fluid overloaded. Patient is on two different diuretics and he has been cutting down on his oral consumption. Review of Systems Constitutional: denies: Fever, Chills Eyes: denies: Decreased vision Cardiac: denies: Chest pain / pressure, Palpitations Respiratory: denies: Dyspnea, Cough GI: denies: Abdominal Pain, Nausea, Vomiting Musculoskeletal: denies: Neck pain, Back pain Neurologic: denies: Syncope, Confused, Altered mental status, Headache, LOC Immunocompromised: denies: Immunocompromised PD PAST MEDICAL HISTORY - Past Medical History Cardiovascular: Congestive heart failure, Hypertension Endocrine/Autoimmune: Type 2 diabetes Musculoskeletal: Gout, Chronic back pain - Past Surgical History Past Surgical History: Yes Ortho: Arthroscopic surgery - Present Medications Home Medications: Ambulatory Orders Medication Instructions Recorded Confirmed Allopurinol 300 mg PO DAILY 10/11/13 06/12/17 Lisinopril 10 mg PO DAILY 10/11/13 06/12/17 Metformin HCl 1,000 mg PO BID 10/11/13 06/12/17 Aspirin 81 mg PO DAILY 06/12/17 06/12/17 Atorvastatin Calcium 40 mg PO DAILY 06/12/17 06/12/17 Apixaban [Eliquis] 5 BID 07/11/17 Furosemide [Lasix] 40 mg DAILY 07/11/17 07/11/17 Metoprolol Succinate 25 mg DAILY 07/11/17 07/11/17 Spironolactone 25 mg DAILY 07/11/17 07/11/17 - Allergies Allergies/Adverse Reactions: Allergies Allergy/AdvReac Type Severity Reaction Status Date / Time Penicillins Allergy Rash Verified 06/12/17 13:53 - Social History Does the pt smoke?: No Smoking Status: Never smoker Does the pt drink ETOH?: No Does the pt have substance abuse?: No - Immunizations Immunizations are current?: Yes PD ED PE NORMAL - Vitals Vital signs reviewed: Yes - General General: Alert and oriented X 3, No acute distress - Neck Neck: No JVD - Cardiac Cardiac: RRR, No murmur - Respiratory Respiratory: No respiratory distress - Derm Derm: Normal color PD ED PE EXPANDED - HEENT HEENT: Dry mucous membranes - Extremities Extremities: Pedal edema bilateral Results - Vitals Vitals: Vital Signs - 24 hr 07/11/17 07/11/17 07/11/17 16:39 19:53 20:45 Temperature 36.0 C L Heart Rate 85 77 80 Respiratory 20 16 11 L Rate Blood Pressure 123/66 100/59 L 115/70 O2 Saturation 95 97 97 07/11/17 07/11/17 21:54 22:00 Temperature Heart Rate 79 75 Respiratory 18 7 L Rate Blood Pressure 119/63 O2 Saturation 98 Oxygen O2 Source Room air - EKG (time done) 2024 Rate: Rate (enter#) (79) Rhythm: NSR [place]: Anterior hemiblock Intervals: RBBB Compare to prior EKG: Unchanged from prior EKG - Labs Labs: Laboratory Tests 07/11/17 07/11/17 07/11/17 20:17 20:17 20:17 WBC 11.1 H RBC 5.09 Hgb 14.2 Hct 43.3 MCV 85.1 MCH 27.9 MCHC 32.8 RDW 14.8 Plt Count 250 MPV 8.0 Neut # 7.9 H Lymph # 1.9 [place] # 0.9 Eos # 0.3 Baso # 0.1 Absolute Nucleated RBC 0.00 Nucleated RBC % 0.0 PT 13.0 H INR 1.2 APTT 30.9 Sodium 133 L Potassium 5.2 H Chloride 101 Carbon Dioxide 23 Anion Gap 9.0 BUN 47 H Creatinine 1.3 H Estimated GFR (MDRD) 57 L Glucose 132 H Calcium 9.5 Phosphorus 4.7 H Magnesium 2.2 Total Bilirubin 0.8 AST 40 ALT 47 Alkaline Phosphatase 74 Troponin I B-Natriuretic Peptide Total Protein 8.2 Albumin 4.3 Globulin 3.9 Albumin/Globulin Ratio 1.1 Lipase 57 H 07/11/17 07/11/17 20:17 20:17 WBC RBC Hgb Hct MCV MCH MCHC RDW Plt Count MPV Neut # Lymph # [place] # Eos # Baso # Absolute Nucleated RBC Nucleated RBC % PT INR APTT Sodium Potassium Chloride Carbon Dioxide Anion Gap BUN Creatinine Estimated GFR (MDRD) Glucose Calcium Phosphorus Magnesium Total Bilirubin AST ALT Alkaline Phosphatase Troponin I < 0.04 B-Natriuretic Peptide 98 Total Protein Albumin Globulin Albumin/Globulin Ratio Lipase PD MEDICAL DECISION MAKING - ED course Complexity details: reviewed old records, reviewed results, re-evaluated patient , considered differential, d/w patient, d/w family ED course: Patient was seen and examined at bedside. IV access was gained and labs were drawn. ekg was performed and was unchanged from previous ekg. Patient was treated with a fluid bolus of 500ml. Upon re-evaluation patient stated he was feeling much better. Patient also drank a bottle of water. Patient was found to be hyperkalemic and was treated with albuterol. Patient was told to hold his dose spironolactone. Patient was given detailed discharge and follow up instructions. Patient required no further work up and was stable for discharge with outpatient follow up. Departure - Departure Disposition: 01 Home, Self Care Clinical Impression: Dehydration Condition: Good Instructions: ED Dehydration Follow-Up: OBINNA CARRIZALES [Primary Care Provider] - Tomorrow Comments: Your symptoms today are being caused by dehydration. You should stay better hydrated over the next few days. Your potassium was elevated and you will need to skip your dose of spionolactone tomorrow. You should call your doctor tomorrow to schedule a follow up appointment. You may return to the emergency department at any time for new, worsening or uncontrollable symptoms.
[2017-07-11 22:25] VITALS: BP 107/64
== END 2017-07-11 22:24 | disposition home or self-care (01) ==
LOC: ED 16:35
DX: E86.0 Dehydration (principal); I45.2 Bifascicular block; I11.0 Hypertensive heart disease with heart failure; I50.9 Heart failure, unspecified; E11.9 Type 2 diabetes mellitus without complications; Z79.84 Long term (current) use of oral hypoglycemic drugs; Z79.82 Long term (current) use of aspirin
CPT/HCPCS: 36415; 80053; 81001; 81003; 83690; 83735; 83880; 84100; 84484; 85025; 85610; 85730; 87086; 93005; 94640; 96360; 99284

== ENCOUNTER 2017-08-20 14:52 | Outpatient (CLI) | payer OTHER | END 2017-08-20 14:53 | disposition home or self-care (01) | LOC: SC 14:52 | PROVIDERS: ATTEND Internal Medicine Pulmonary Disease | DX: G47.10 Hypersomnia, unspecified (principal); G47.8 Other sleep disorders; I50.9 Heart failure, unspecified; E66.01 Morbid (severe) obesity due to excess calories; Z68.43 Body mass index [BMI] 50.0-59.9, adult | CPT/HCPCS: 99203; 99212 ==

== ENCOUNTER 2017-10-05 20:30 | Outpatient (CLI) | payer OTHER | END 2017-10-05 20:31 | disposition home or self-care (01) | LOC: SC 20:30 | PROVIDERS: ATTEND Internal Medicine Pulmonary Disease | DX: G47.10 Hypersomnia, unspecified (principal); I10 Essential (primary) hypertension; R06.83 Snoring | CPT/HCPCS: 95810 ==

== ENCOUNTER 2017-12-06 21:22 | Outpatient (CLI) | payer OTHER | END 2017-12-06 21:23 | disposition home or self-care (01) | LOC: SC 21:22 | PROVIDERS: ATTEND Internal Medicine Pulmonary Disease | DX: G47.33 Obstructive sleep apnea (adult) (pediatric) (principal); G47.61 Periodic limb movement disorder | CPT/HCPCS: 95810 ==

== ENCOUNTER 2017-12-18 11:12 | Outpatient (CLI) | payer OTHER | END 2017-12-18 11:13 | disposition home or self-care (01) | LOC: SC 11:12 | PROVIDERS: ATTEND Nurse Practitioner Family | DX: G47.33 Obstructive sleep apnea (adult) (pediatric) (principal); G47.61 Periodic limb movement disorder | CPT/HCPCS: 99212; 99214 ==

== ENCOUNTER 2018-01-18 20:33 | Outpatient (CLI) | payer OTHER | END 2018-01-18 20:34 | disposition home or self-care (01) | LOC: SC 20:33 | PROVIDERS: ATTEND Internal Medicine Pulmonary Disease | DX: G47.33 Obstructive sleep apnea (adult) (pediatric) (principal); G47.61 Periodic limb movement disorder | CPT/HCPCS: 95811 ==

== ENCOUNTER 2018-02-26 09:12 | Outpatient (CLI) | payer OTHER | END 2018-02-26 09:13 | disposition home or self-care (01) | LOC: SC 09:12 | PROVIDERS: ATTEND Nurse Practitioner Family | DX: G47.33 Obstructive sleep apnea (adult) (pediatric) (principal); G47.61 Periodic limb movement disorder | CPT/HCPCS: 99212; 99214 ==

== ENCOUNTER 2020-10-10 11:32 | Emergency (ER) | payer OTHER ==
[2020-10-10] MEDS ORDERED: PROPARACAINE 0.5% OPHTH DROPS 15 ML LEFTEYE STA (11:40)
--- NOTE | 2020-10-10 12:47 | ED Physician Documentation ---
PD HPI OPHTHO - Stated complaint Stated Complaint: FB LT EYE - Chief complaint Chief Complaint: Heent - History obtained from History obtained from: Patient - Additional information Additional information: With no Specific trauma this 60-year-old gentleman developed a severe foreign body sensation in the left eye last night. No inciting factors. He does not wear contacts. He has a history of retinal tear on that side. PD PAST MEDICAL HISTORY - Past Medical History Cardiovascular: Congestive heart failure, Hypertension Endocrine/Autoimmune: Type 2 diabetes Musculoskeletal: Gout, Chronic back pain - Past Surgical History Past Surgical History: Yes Ortho: Arthroscopic surgery - Present Medications Home Medications: Ambulatory Orders Medication Instructions Recorded Confirmed Metformin HCl 1,000 mg PO BID 10/11/13 06/12/17 allopurinoL [Allopurinol] 300 mg PO DAILY 10/11/13 06/12/17 lisinopriL [Lisinopril] 10 mg PO DAILY 10/11/13 06/12/17 Aspirin 81 mg PO DAILY 06/12/17 06/12/17 Atorvastatin Calcium 40 mg PO DAILY 06/12/17 06/12/17 Apixaban [Eliquis] 5 BID 07/11/17 Furosemide [Lasix] 40 mg DAILY 07/11/17 07/11/17 Metoprolol Succinate 25 mg DAILY 07/11/17 07/11/17 Spironolactone 25 mg DAILY 07/11/17 07/11/17 diazePAM [Valium] 5 - 10 mg PO QPM PRN #8 tablet 10/10/20 levoFLOXacin 0.5% OPHTH DROPS 1 drops OPTH Q2H #5 ml 10/10/20 [Quixin Ophth Drops] - Allergies Allergies/Adverse Reactions: Allergies Allergy/AdvReac Type Severity Reaction Status Date / Time Penicillins Allergy Rash Verified 10/10/20 12:01 - Social History Does the pt smoke?: No Smoking Status: Never smoker Does the pt drink ETOH?: No Does the pt have substance abuse?: No - Immunizations Immunizations are current?: Yes PD ED PE NORMAL - Vitals Vital signs reviewed: Yes - General General: Alert and oriented X 3, No acute distress - HEENT HEENT: PERRL, EOMI, Other (He is a large corneal ulcer Centrally on the left with fluorescein uptake and diffuse conjunctivitis. There is no foreign body identified.) - Neck Neck: Supple, no meningeal sign, No bony TTP - Neuro Neuro: Alert and oriented X 3, Normal speech - Psych Psych: Normal mood, Normal affect Results - Vitals Vitals: Vital Signs - 24 hr 10/10/20 11:58 Temperature 36.5 C Heart Rate 65 Respiratory 17 Rate Blood Pressure 139/74 H O2 Saturation 99 Oxygen O2 Source Room air PD MEDICAL DECISION MAKING - ED course ED course: 60-year-old gentleman with large corneal ulcer. Started on levofloxacin ophthalmic every 2 hours including overnight. Contact made with Dr. Hi Burns who will see him tomorrow for close follow- up. Departure - Departure Disposition: Home, Self Care Clinical Impression: Corneal ulcer Qualifiers: Laterality: left Qualified Code(s): H16.002 - Unspecified corneal ulcer, left eye Condition: Good Record reviewed to determine appropriate education?: Yes Instructions: ED Ulcer Cornea Follow-Up: Hi Burns MD [Provider Admit Priv/Credential] - Prescriptions: levoFLOXacin 0.5% OPHTH DROPS [Quixin Ophth Drops] 1 drops OPTH Q2H #5 ml diazePAM [Valium] 5 - 10 mg PO QPM PRN #8 tablet PRN Reason: sleep Comments: You were seen today for a corneal ulcer of the left eye. This needs very close follow-up with an orange peel operator. I have contacted Dr. Hi Burns who is in [place]. His number's on this form. Call his office at [phone] tomorrow. He will see you tomorrow in follow-up. Until then you need to use the eyedrop every 2 hours including overnight.
[2020-10-10] MEDS ORDERED: levoFLOXacin 0.5% OPHTH DROPS 5 ML LEFTEYE SCH (13:00)
[2020-10-10 13:22] VITALS: BP 139/83
== END 2020-10-10 13:22 | disposition home or self-care (01) ==
LOC: ED 11:32
DX: H16.002 Unspecified corneal ulcer, left eye (principal); E11.9 Type 2 diabetes mellitus without complications; Z79.84 Long term (current) use of oral hypoglycemic drugs
CPT/HCPCS: 99281; 99282; A9270; J3490

== ENCOUNTER 2020-10-31 18:26 | Emergency (ER) | payer OTHER ==
[2020-10-31] MEDS ORDERED: DEXAMETHASONE 10 MG/ML VIAL PO STA (18:51)
--- NOTE | 2020-10-31 19:00 | ED Physician Documentation ---
PD HPI BACK PAIN - Stated complaint Stated Complaint: LOWER BACK PX - Chief complaint Chief Complaint: Back Pain - History obtained from History obtained from: Patient - History of Present Illness Timing - onset: How many days ago (several days) Timing - details: Abrupt onset Pain level max: 8 Pain level now: 5 Associated symptoms: No: Fever, Weakness, Numbness, Incontinent of urine, Unable to urinate, Hematuria, Incontinent of stool Contributing factors: No: Lifting, Twisting, Trauma, Anticoagulated, Cancer, IVDA, Out of meds - Additional information Additional information: Patient is a 60-year-old male who presents to the emergency department with lower back pain. This been a chronic ongoing issue for him he has a longstanding history of sciatica. He states he turned a few days ago and felt a sharp pain in his back, has had sharp shooting pain since that time. Worse with standing, better with sitting or lying down. No relief with Motrin and Tylenol. No numbness or tingling. No loss of bowel or bladder control. Review of Systems Constitutional: denies: Fever, Chills Respiratory: denies: Cough GI: denies: Nausea, Vomiting, Diarrhea : denies: Dysuria, Frequency, Hesitancy Skin: denies: Rash Musculoskeletal: denies: Neck pain Neurologic: denies: Headache PD PAST MEDICAL HISTORY - Past Medical History Past Medical History: Yes Cardiovascular: Congestive heart failure, Hypertension Respiratory: None Endocrine/Autoimmune: Type 2 diabetes GI: None : None HEENT: None Psych: None Musculoskeletal: Gout, Chronic back pain Derm: None - Past Surgical History Past Surgical History: Yes Ortho: Arthroscopic surgery Cardiovascular: Pacemaker, AICD - Present Medications Home Medications: Ambulatory Orders Medication Instructions Recorded Confirmed Metformin HCl 1,000 mg PO BID 10/11/13 10/31/20 allopurinoL [Allopurinol] 300 mg PO DAILY 10/11/13 10/31/20 lisinopriL [Lisinopril] 10 mg PO DAILY 10/11/13 10/31/20 Aspirin 81 mg PO DAILY 06/12/17 10/31/20 Atorvastatin Calcium 40 mg PO DAILY 06/12/17 10/31/20 Apixaban [Eliquis] 5 BID 07/11/17 Metoprolol Succinate 25 mg DAILY 07/11/17 10/31/20 Spironolactone 25 mg DAILY 07/11/17 10/31/20 levoFLOXacin 0.5% OPHTH DROPS 1 drops OPTH Q2H #5 ml 10/10/20 10/31/20 [Quixin Ophth Drops] predniSONE [Deltasone] 10 mg PO [id number] #42 tab 10/31/20 - Allergies Allergies/Adverse Reactions: Allergies Allergy/AdvReac Type Severity Reaction Status Date / Time Penicillins Allergy Rash Verified 10/31/20 18:29 - Social History Does the pt smoke?: No Smoking Status: Never smoker Does the pt drink ETOH?: Yes Does the pt have substance abuse?: No Substance Use and Type: Marijuana, CBD oil / Products - Immunizations Immunizations are current?: Yes - POLST Patient has POLST: No PD ED PE NORMAL - Vitals Vital signs reviewed: Yes - General General: Alert and oriented X 3, No acute distress, Well developed/nourished - HEENT HEENT: PERRL, Moist mucous membranes - Neck Neck: Supple, no meningeal sign - Cardiac Cardiac: RRR, Strong equal pulses - Respiratory Respiratory: No respiratory distress, Clear bilaterally - Abdomen Abdomen: Soft, Non tender, Non distended - Back Back: No spinal TTP (No midline tenderness to palpation or percussion. No step- off or deformity. No paraspinal muscle tenderness.) - Derm Derm: Warm and dry - Extremities Extremities: No edema, No calf tenderness / cord - Neuro Neuro: Alert and oriented X 3 - Psych Psych: Normal mood, Normal affect Results - Vitals Vitals: Vital Signs - 24 hr 10/31/20 10/31/20 18:29 19:15 Temperature 36.5 C 36.5 C Heart Rate 64 65 Respiratory 16 16 Rate Blood Pressure 135/88 H O2 Saturation 97 98 Oxygen O2 Source Room air PD MEDICAL DECISION MAKING - ED course Complexity details: considered differential (No cauda equina, no spinal epidural abscess, no fracture, no aortic dissection or evidence of aneursym rupture), d/w patient ED course: 60-year-old male with what appears to be sciatica. He declines pain medication here for home. States steroids have worked for him in the past. I will place him on a prednisone taper and have him follow-up with his doctor for further care. No evidence of cauda equina, epidural abscess. Patient counseled regarding signs and symptoms for which I believe and urgent re-evaluation would be necessary. Patient with good understanding of and agreement to plan and is comfortable going home at this time This document was made in part using voice recognition software. While efforts are made to proofread this document, sound alike and grammatical errors may occur. Departure - Departure Disposition: 01 Home, Self Care Clinical Impression: Sciatica Qualifiers: Laterality: bilateral Qualified Code(s): M54.31 - Sciatica, right side Condition: Good Instructions: ED Sciatica Follow-Up: ANA ESPINAL MD [Primary Care Provider] - Within 1 week Prescriptions: predniSONE [Deltasone] 10 mg PO [id number] #42 tab Comments: Follow-up with your doctor in 1 week for repeat evaluation. Return if you worsen. The prescription was sent to the [facility] pharmacy. Discharge Date/Time: 10/31/20 19:15
[2020-10-31] MEDS ORDERED: DEXAMETHASONE 10 MG/ML VIAL ONE (19:12)
[2020-10-31 19:17] VITALS: BP 135/88
== END 2020-10-31 19:15 | disposition home or self-care (01) ==
LOC: ED 18:26
DX: M54.31 Sciatica, right side (principal); I10 Essential (primary) hypertension; Z79.01 Long term (current) use of anticoagulants; E11.9 Type 2 diabetes mellitus without complications; Z79.84 Long term (current) use of oral hypoglycemic drugs
CPT/HCPCS: 99282; 99283

== ENCOUNTER 2021-05-03 14:49 | Emergency (ER) | payer OTHER ==
[2021-05-03 15:03] VITALS: BP 152/82
[2021-05-03] MEDS ORDERED: DEXAMETHASONE 10 MG/ML VIAL PO STA (15:11)
[2021-05-03] MEDS ORDERED: CHERRY SYRUP 10 ML UDC PO ONE (15:11)
--- NOTE | 2021-05-03 15:12 | ED Physician Documentation ---
PD HPI BACK PAIN - Stated complaint Stated Complaint: BACK PX - Chief complaint Chief Complaint: Back Pain - History obtained from History obtained from: Patient - Additional information Additional information: 60-year-old gentleman with chronic recurrent low back pain, recurred last night while bending over to pick something up and has severe pain especially with motion across the low back equally to both sides. It is not associated with weakness, numbness, tingling, saddle anesthesia, fevers. Pain is moderate at rest but severe with any motion especially bending or twisting. States that in the past steroids have been quite helpful for him and declines any other interventions or pain medication. Review of Systems Constitutional: denies: Fever, Chills Nose: reports: Reviewed and negative Cardiac: reports: Reviewed and negative Respiratory: reports: Reviewed and negative PD PAST MEDICAL HISTORY - Past Medical History Cardiovascular: Congestive heart failure, Hypertension Respiratory: None Endocrine/Autoimmune: Type 2 diabetes GI: None : None HEENT: None Psych: None Musculoskeletal: Gout, Chronic back pain Derm: None - Past Surgical History Past Surgical History: Yes Ortho: Arthroscopic surgery Cardiovascular: Pacemaker, AICD - Present Medications Home Medications: Ambulatory Orders Medication Instructions Recorded Confirmed Metformin HCl 1,000 mg PO BID 10/11/13 10/31/20 allopurinoL [Allopurinol] 300 mg PO DAILY 10/11/13 10/31/20 lisinopriL [Lisinopril] 10 mg PO DAILY 10/11/13 10/31/20 Aspirin 81 mg PO DAILY 06/12/17 10/31/20 Atorvastatin Calcium 40 mg PO DAILY 06/12/17 10/31/20 Apixaban [Eliquis] 5 BID 07/11/17 Metoprolol Succinate 25 mg DAILY 07/11/17 10/31/20 Spironolactone 25 mg DAILY 07/11/17 10/31/20 levoFLOXacin 0.5% OPHTH DROPS 1 drops OPTH Q2H #5 ml 10/10/20 10/31/20 [Quixin Ophth Drops] predniSONE [Deltasone] 10 mg PO [id number] #42 tab 10/31/20 predniSONE [Deltasone] 20 mg PO [id number] #[id number] tab 05/03/21 - Allergies Allergies/Adverse Reactions: Allergies Allergy/AdvReac Type Severity Reaction Status Date / Time Penicillins Allergy Rash Verified 05/03/21 15:03 - Social History Does the pt smoke?: No Smoking Status: Never smoker Does the pt drink ETOH?: Yes Does the pt have substance abuse?: No - Immunizations Immunizations are current?: Yes - POLST Patient has POLST: No PD ED PE NORMAL - Vitals Vital signs reviewed: Yes - General General: Alert and oriented X 3, Other ([place] with motion but comfortable at rest) - Abdomen Abdomen: Normal bowel sounds, Soft, Non tender - Back Back: No spinal TTP, Other (The patient has equal and normal Achilles and patellar reflexes bilaterally. Normal sensation in all areas of the legs. Patient denies saddle anesthesia. Normal strength in flexion-extension at the ankles, knees, and flexion of the hips.) - Neuro Neuro: Alert and oriented X 3, Normal speech Results - Vitals Vitals: Vital Signs - 24 hr 05/03/21 05/03/21 14:59 15:10 Temperature 36.3 C L Heart Rate 79 Respiratory 16 20 Rate Blood Pressure 152/82 H O2 Saturation 95 Oxygen O2 Source Room air PD MEDICAL DECISION MAKING - ED course ED course: This patient has seemingly uncomplicated musculoskeletal back pain. The patient has no "red flags." Specifically denies IV drug use, fevers, incontinence, saddle anesthesia. Spinal epidural abscess was considered, given that the patient has no fever, is not diabetic, has no spinal tenderness, does not use IV drugs, and has no bilateral neurologic symptoms, the diagnosis of spinal epidural abscess is considered exceedingly unlikely. Departure - Departure Disposition: 01 Home, Self Care Clinical Impression: Acute exacerbation of chronic low back pain Condition: Good Record reviewed to determine appropriate education?: Yes Instructions: ED Low Back Pain Injury Prescriptions: predniSONE [Deltasone] 20 mg PO [id number] #[id number] tab Comments: I sent your prescription electronically to [facility] in [place], that said you do not have to pick it up until tomorrow since he did have a dose of steroids here. Return for new or worsening symptoms and follow-up with your primary care physician if not better Sunday or Sunday.
== END 2021-05-03 15:26 | disposition home or self-care (01) ==
LOC: ED 14:49
DX: M54.50 Low back pain, unspecified (principal); G89.29 Other chronic pain
CPT/HCPCS: 99282; 99283; A9270

== ENCOUNTER 2021-05-20 18:56 | Emergency (ER) | payer OTHER ==
[2021-05-20 19:07] VITALS: BP 170/87
[2021-05-20] MEDS ORDERED: CHERRY SYRUP 10 ML UDC PO ONE (19:30)
[2021-05-20] MEDS ORDERED: DEXAMETHASONE 10 MG/ML VIAL PO STA (19:30)
--- NOTE | 2021-05-20 19:33 | ED Physician Documentation ---
History of Present Illness - Stated complaint Stated Complaint: HEADACHES,SIN,PRESSURE - Chief complaint Chief Complaint: Heent - Additonal information Additional information: 60-year-old male comes to the emergency department for evaluation of 1 week left maxillary sinus pain pressure and congestion. He states that he cannot chew on the left side of his face due to the pain. Any times he bends over he has searing pain in his face. 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 He denies any recent fevers. He would like a prescription for some antibiotics. He has been using [id number] sinus meds without relief of symptoms. He did take a home Covid test a few days ago that was negative Review of Systems Constitutional: reports: Chills, Myalgias. denies: Fever Eyes: reports: Reviewed and negative Ears: reports: Ear pain Nose: reports: Rhinorrhea / runny nose, Congestion Throat: denies: Sore throat Cardiac: denies: Chest pain / pressure, Palpitations Respiratory: denies: Dyspnea, Cough GI: reports: Reviewed and negative : reports: Reviewed and negative Skin: reports: Reviewed and negative Musculoskeletal: reports: Reviewed and negative Neurologic: reports: Reviewed and negative PD PAST MEDICAL HISTORY - Past Medical History Cardiovascular: Congestive heart failure, Hypertension Respiratory: None Endocrine/Autoimmune: Type 2 diabetes GI: None : None HEENT: None Psych: None Musculoskeletal: Gout, Chronic back pain Derm: None - Past Surgical History Past Surgical History: Yes Ortho: Arthroscopic surgery Cardiovascular: Pacemaker, AICD - Present Medications Home Medications: Ambulatory Orders Medication Instructions Recorded Confirmed Metformin HCl 1,000 mg PO BID 10/11/13 10/31/20 allopurinoL [Allopurinol] 300 mg PO DAILY 10/11/13 10/31/20 lisinopriL [Lisinopril] 10 mg PO DAILY 10/11/13 10/31/20 Aspirin 81 mg PO DAILY 06/12/17 10/31/20 Atorvastatin Calcium 40 mg PO DAILY 06/12/17 10/31/20 Apixaban [Eliquis] 5 BID 07/11/17 Metoprolol Succinate 25 mg DAILY 07/11/17 10/31/20 Spironolactone 25 mg DAILY 07/11/17 10/31/20 levoFLOXacin 0.5% OPHTH DROPS 1 drops OPTH Q2H #5 ml 10/10/20 10/31/20 [Quixin Ophth Drops] predniSONE [Deltasone] 10 mg PO [id number] #42 tab 10/31/20 predniSONE [Deltasone] 20 mg PO [id number] #21 tab 05/03/21 Amox/Clav 875/125 [Augmentin] 1 each PO Q12H #20 tablet 05/20/21 - Allergies Allergies/Adverse Reactions: Allergies Allergy/AdvReac Type Severity Reaction Status Date / Time Penicillins Allergy Rash Verified 05/20/21 19:04 - Social History Does the pt smoke?: No Smoking Status: Never smoker Does the pt drink ETOH?: Yes Does the pt have substance abuse?: No - Immunizations Immunizations are current?: Yes - POLST Patient has POLST: No PD ED PE EXPANDED - General General: Alert, In Pain, In distress - HEENT HEENT: PERRL, Left maxillary sinus TTP, Nasal congestion, Pharynx normal. No: Right frontal sinus TTP, Left frontal sinus TTP, Right maxillary sinus TTP - Neck Neck: Supple w/out meningeal sx. No: Adenopathy - Cardiac Cardiac: Regular Rate, Radial strong equal - Respiratory Respiratory: Clear to ausultation savi. No: Distress, Labored - Neuro Neuro: Alert and Oriented X 3, CNII-XII intact - GCS Eye Opening: Spontaneous Motor: Obeys Commands Verbal: Oriented Total: 15 Results - Vitals Vitals: Vital Signs - 24 hr 05/20/21 19:04 Temperature 36.5 C Heart Rate 84 Respiratory 20 Rate Blood Pressure 170/87 H O2 Saturation 94 Oxygen O2 Source Room air PD MEDICAL DECISION MAKING - ED course Complexity details: considered differential, d/w patient ED course: 60-year-old male presents emergency department for evaluation of 1 week left frontal maxillary sinus pressure pain and congestion. No fevers. 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 Though he has no fevers he is exquisitely tender in the maxillary sinus. He is requesting a course of antibiotics. Patient has seemingly tried routine measures at home such as [id number] pain medications sinus preps without relief of symptoms. Given this and the significant tenderness we will start him on Augmentin. First dose given in the ER. Dose of Decadron is also given to help with pain and inflammation. Patient is advised to use Benadryl to help as a decongestant which will also help with sleep tonight. Return precautions were discussed for worsening symptoms, fevers milky drainage facial swelling. Advise close follow-up with primary care provider. Departure - Departure Disposition: 01 Home, Self Care Clinical Impression: Left maxillary sinusitis Condition: Stable Record reviewed to determine appropriate education?: Yes Instructions: ED Sinusitis Abx Tx Ch Follow-Up: ANA ESPINAL MD [Primary Care Provider] - Prescriptions: Amox/Clav 875/125 [Augmentin] 1 each PO Q12H #20 tablet Comments: Taran rivas are seen today in the emergency department for pain in your left maxillary sinus and congestion. To treat your sinusitis I would like you to fill the prescription for the Augmentin and begin taking twice daily for the next 10 days. What is most beneficial things you can do to help with the congestion right now would be saline nasal rinses starting in your right nose. Once you are successful with a saline nasal rinse then I do recommend you use the Flonase especially in the left nostril. Using Benadryl tonight will not only help you sleep but it will also act as a decongestant which should help dry up your sinuses somewhat and help with your symptoms. We did give you a dose of Decadron here in the emergency department which will help with the pressure and pain over the next few days. I do recommend you do the sinus rinses every day. You may also benefit from considering taking an allergy pill. If you find that despite the sinus rinses and antibiotics you are having worsening symptoms, increased pain, facial swelling or fevers then please return to the ER for second evaluation. Your antibiotic prescription has been electronically sent to the [facility] in [place]
[2021-05-20] MEDS ORDERED: AMOX/CLAV 875 MG/125 MG TABLET PO STA (19:49)
== END 2021-05-20 19:59 | disposition home or self-care (01) ==
LOC: ED 18:56
DX: J32.0 Chronic maxillary sinusitis (principal); I11.0 Hypertensive heart disease with heart failure; I50.9 Heart failure, unspecified; E11.9 Type 2 diabetes mellitus without complications; Z79.84 Long term (current) use of oral hypoglycemic drugs
CPT/HCPCS: 99282; A9270

== ENCOUNTER 2021-12-27 21:52 | Emergency (ER) | payer OTHER ==
[2021-12-28] MEDS ORDERED: ALBUTEROL NEB 2.5 MG/3 ML INH STA (00:32)
--- NOTE | 2021-12-28 00:34 | ED Physician Documentation ---
History of Present Illness - Stated complaint Stated Complaint: SOA,CONGESTION,COUGH - Chief complaint Chief Complaint: Resp - History obtained from History obtained from: Patient - Additonal information Additional information: 61yM with pmh afib, chf (ef 50%), aicd/pacer, dm, p/w sore throat and cough X 3 days with SOA since yesterday and temp today of 100.2 at home. patient endorsing increased leg swelling and worsening SOA with lying flat. denies hemoptysis. cough is productive of yellow sputum. denies cp, nausea. Review of Systems Ten Systems: 10 systems reviewed and negative Constitutional: reports: Fever, Chills, Myalgias, Fatigue Throat: reports: Sore throat Respiratory: reports: Dyspnea, Cough PD PAST MEDICAL HISTORY - Past Medical History Past Medical History: Yes Cardiovascular: Congestive heart failure, Hypertension Respiratory: None Neuro: None Endocrine/Autoimmune: Type 2 diabetes GI: None : None HEENT: None Psych: None Musculoskeletal: Gout, Chronic back pain Derm: None - Past Surgical History Past Surgical History: Yes Ortho: Arthroscopic surgery Cardiovascular: Pacemaker, AICD - Present Medications Home Medications: Ambulatory Orders Medication Instructions Recorded Confirmed Metformin HCl 1,000 mg PO BID 10/11/13 10/31/20 allopurinoL [Allopurinol] 300 mg PO DAILY 10/11/13 10/31/20 lisinopriL [Lisinopril] 10 mg PO DAILY 10/11/13 10/31/20 Aspirin 81 mg PO DAILY 06/12/17 10/31/20 Atorvastatin Calcium 40 mg PO DAILY 06/12/17 10/31/20 Apixaban [Eliquis] 5 BID 07/11/17 Metoprolol Succinate 25 mg DAILY 07/11/17 10/31/20 Spironolactone 25 mg DAILY 07/11/17 10/31/20 levoFLOXacin 0.5% OPHTH DROPS 1 drops OPTH Q2H #5 ml 10/10/20 10/31/20 [Quixin Ophth Drops] predniSONE [Deltasone] 10 mg PO [id number] #42 tab 10/31/20 predniSONE [Deltasone] 20 mg PO [id number] #21 tab 05/03/21 Amox/Clav 875/125 [Augmentin] 1 each PO Q12H #20 tablet 05/20/21 - Allergies Allergies/Adverse Reactions: Allergies Allergy/AdvReac Type Severity Reaction Status Date / Time Penicillins Allergy Rash Verified 05/20/21 19:04 - Social History Does the pt smoke?: No Smoking Status: Never smoker Does the pt drink ETOH?: Yes Does the pt have substance abuse?: No - Immunizations Immunizations are current?: Yes - POLST Patient has POLST: No PD ED PE NORMAL - Vitals Vital signs reviewed: Yes - General General: Alert and oriented X 3, No acute distress, Well developed/nourished - HEENT HEENT: Atraumatic, PERRL, EOMI, Moist mucous membranes, Pharynx benign - Cardiac Cardiac: RRR - Respiratory Respiratory: Other (BL crackles) - Abdomen Abdomen: Non tender, Non distended - Derm Derm: Normal color, Warm and dry - Extremities Extremities: Other (1+ BL LE pitting edema) - Neuro Neuro: No motor deficit, No sensory deficit - Psych Psych: Normal mood, Normal affect Results - Vitals Vitals: Vital Signs - 24 hr 12/27/21 12/27/21 12/27/21 22:05 22:25 23:35 Temperature 37.9 C Heart Rate 85 83 87 Respiratory 24 17 16 Rate Blood Pressure 190/79 H 158/80 H 155/70 H O2 Saturation 94 94 99 12/28/21 12/28/21 12/28/21 00:30 00:45 01:03 Temperature Heart Rate 97 86 Respiratory 20 20 17 Rate Blood Pressure 174/71 H 174/75 H O2 Saturation 99 96 Oxygen O2 Source Room air - EKG (time done) 2213 Rate: Rate (enter#) (86) Rhythm: Other (atrial sensed ventricular paced rhythm) - Labs Labs: Laboratory Tests 12/28/21 12/28/21 12/28/21 00:42 00:42 00:51 WBC 14.1 H RBC 4.25 L Hgb 12.8 L Hct 41.1 L MCV 96.7 H MCH 30.1 MCHC 31.1 L RDW 13.5 Plt Count 242 MPV 9.1 Neut # (Auto) 10.4 H Lymph # (Auto) 1.6 Dickenson # (Auto) 1.4 H Eos # (Auto) 0.5 Baso # (Auto) 0.1 Absolute Nucleated RBC 0.00 Nucleated RBC % 0.0 VBG pH VBG pCO2 VBG pO2 VBG HCO3 VBG Total CO2 VBG O2 Saturation VBG Base Excess Sodium 138 Potassium 4.4 Chloride 105 Carbon Dioxide 24 Anion Gap 9.0 BUN 23 H Creatinine 1.1 Estimated GFR (MDRD) 68 L Glucose 151 H Calcium 9.2 Total Bilirubin 0.6 AST 19 ALT 21 Alkaline Phosphatase 66 B-Natriuretic Peptide Total Protein 7.9 Albumin 4.1 Globulin 3.8 Albumin/Globulin Ratio 1.1 Nasal Adenovirus (PCR) NOT DETECTED Nasal B. parapertussis DNA (PCR) NOT DETECTED Nasal Coronavir 229E PCR NOT DETECTED Nasal Coronavir HKU1 PCR NOT DETECTED Nasal Coronavir NL63 PCR NOT DETECTED Nasal Coronavir OC43 PCR NOT DETECTED Nasal Enterovir/Rhinovir PCR DETECTED A Nasal Influenza B PCR NOT DETECTED Nasal Influenza A PCR NOT DETECTED Nasal Parainfluen 1 PCR NOT DETECTED Nasal Parainfluen 2 PCR NOT DETECTED Nasal Parainfluen 3 PCR NOT DETECTED Nasal Parainfluen 4 PCR NOT DETECTED Nasal RSV (PCR) NOT DETECTED Nasal B.pertussis DNA PCR NOT DETECTED Nasal C.pneumoniae (PCR) NOT DETECTED Jere Human Metapneumo PCR NOT DETECTED Nasal M.pneumoniae (PCR) NOT DETECTED Nasal SARS-CoV-2 (PCR) NOT DETECTED 12/28/21 12/28/21 00:59 00:59 WBC RBC Hgb Hct MCV MCH MCHC RDW Plt Count MPV Neut # (Auto) Lymph # (Auto) Dickenson # (Auto) Eos # (Auto) Baso # (Auto) Absolute Nucleated RBC Nucleated RBC % VBG pH 7.340 VBG pCO2 46.9 VBG pO2 37.5 VBG HCO3 24.7 VBG Total CO2 26.2 VBG O2 Saturation 72.3 VBG Base Excess -1.4 Sodium Potassium Chloride Carbon Dioxide Anion Gap BUN Creatinine Estimated GFR (MDRD) Glucose Calcium Total Bilirubin AST ALT Alkaline Phosphatase B-Natriuretic Peptide 41 Total Protein Albumin Globulin Albumin/Globulin Ratio Nasal Adenovirus (PCR) Nasal B. parapertussis DNA (PCR) Nasal Coronavir 229E PCR Nasal Coronavir HKU1 PCR Nasal Coronavir NL63 PCR Nasal Coronavir OC43 PCR Nasal Enterovir/Rhinovir PCR Nasal Influenza B PCR Nasal Influenza A PCR Nasal Parainfluen 1 PCR Nasal Parainfluen 2 PCR Nasal Parainfluen 3 PCR Nasal Parainfluen 4 PCR Nasal RSV (PCR) Nasal B.pertussis DNA PCR Nasal C.pneumoniae (PCR) Jere Human Metapneumo PCR Nasal M.pneumoniae (PCR) Nasal SARS-CoV-2 (PCR) PD MEDICAL DECISION MAKING - ED course ED course: 61yM p/w viral URI vs pneumonia. will eval labs, cxr, treat symptomatically and reevaluate. patient with rhinovirus infection on labs. no pneumonia apparent on cxr. advised patient of symptomatic care. He will f/u with his pcp. return precautions given. Departure - Departure Disposition: Home, Self Care Clinical Impression: Rhinovirus Condition: Good Instructions: ED Viral Syndrome Comments: You were seen in the ED for common cold virus (rhinovirus). Your chest xray did not show a pneumonia and you are not having a heart failure exacerbation. Please follow up with your primary care provider. Return to the ED if you have new or worsening symptoms or other concerns.
[2021-12-28 00:54] LABS: BASOPHILS # (AUTO) 0.1 10^3/uL (0.0-0.1); BASOPHILS % (AUTO) 0.6 %; EOSINOPHILS # (AUTO) 0.5 10^3/uL (0.0-0.7); EOSINOPHILS % (AUTO) 3.8 %; HCT - HEMATOCRIT 41.1 % (42.0-52.0); HGB - HEMOGLOBIN 12.8 g/dL (14.0-18.0); LYMPHOCYTES # (AUTO) 1.6 10^3/uL (1.5-3.5); LYMPHOCYTES % (AUTO) 11.6 %; MEAN CORPUSCULAR HEMOGLOBIN 30.1 pg (27.0-31.0); MEAN CORPUSCULAR HGB CONC 31.1 g/dL (32.0-36.0); MEAN CORPUSCULAR VOLUME 96.7 fL (80.0-94.0); MEAN PLATELET VOLUME 9.1 fL (7.4-11.4); MONOCYTES # (AUTO) 1.4 10^3/uL (0.0-1.0); NEUTROPHILS # (AUTO) 10.4 10^3/uL (1.5-6.6); NEUTROPHILS % (AUTO) 73.6 %; PLT - PLATELET COUNT 242 10^3/uL (130-450); RED BLOOD COUNT 4.25 10^6/uL (4.70-6.10); RED CELL DISTRIBUTION WIDTH 13.5 % (12.0-15.0); WHITE BLOOD COUNT 14.1 x10^3/uL (4.8-10.8)
[2021-12-28 01:03] LABS: ALBUMIN 4.1 g/dL (3.2-5.5); ALBUMIN/GLOBULIN RATIO 1.1 (1.0-2.2); BILIRUBIN,TOTAL 0.6 mg/dL (0.2-1.0); CALCIUM 9.2 mg/dL (8.5-10.3); CREATININE 1.1 mg/dL (0.6-1.2); POTASSIUM 4.4 mmol/L (3.5-5.0); TOTAL PROTEIN 7.9 g/dL (6.7-8.2)
[2021-12-28 01:15] LABS: VBG BASE EXCESS -1.4 mmol/L (-2 - +2); VBG HCO3 24.7 mmol/L (23-28); VBG OXYGEN SATURATION 72.3 % (60-80); VBG PCO2 46.9 mmHg (41-51); VBG PH 7.34 (7.31-7.41); VBG PO2 37.5 mmHg (25-47); VBG TOTAL CO2 26.2 mmol/L (24-29)
[2021-12-28 02:52] LABS: B. PARAPERTUSSIS- RESP PCR PAN NOT DETECTED; B. PERTUSSIS- RESP PCR PANEL NOT DETECTED; C. PNEUMONIAE- RESP PCR PANEL NOT DETECTED; CORONAVIRUS 229E-RESP PCR NOT DETECTED; CORONAVIRUS HKU1-RESP PCR NOT DETECTED; CORONAVIRUS NL63-RESP PCR NOT DETECTED; CORONAVIRUS OC43-RESP PCR NOT DETECTED; HUMAN METAPNEUMOVIRUS NOT DETECTED; INFLUENZA A- RESP PCR PANEL NOT DETECTED; INFLUENZA B - RESP PCR PANEL NOT DETECTED; M. PNEUMONIAE- RESP PCR PANEL NOT DETECTED; PARAINFLUENZA VIRUS 1 NOT DETECTED; PARAINFLUENZA VIRUS 2 NOT DETECTED; PARAINFLUENZA VIRUS 3 NOT DETECTED; PARAINFLUENZA VIRUS 4 NOT DETECTED; RHINOVIRUS/ENTEROVIRUS DETECTED; RSV- RESP PCR PANEL NOT DETECTED; SARS-CoV-2 -RESP PCR PANEL NOT DETECTED
[2021-12-28 04:43] VITALS: BP 155/72
--- NOTE | 2021-12-28 08:13 | XRAY Report ---
PROCEDURE: Chest 2 View X-Ray INDICATIONS: soa, fever, cough TECHNIQUE: 2 view(s) of the chest. COMPARISON: 06/12/2017 FINDINGS: Surgical changes and devices: Interval pacemaker placement. Lungs and pleura: No pleural effusions or pneumothorax. Lungs are clear. Mediastinum: Mediastinal contours are normal. Previous cardiomegaly has resolved. Bones and chest wall: No suspicious bony abnormalities. Soft tissues appear unremarkable. IMPRESSION: No evidence acute pulmonary process. Reviewed by: Max Ralph MD on 12/28/2021 8:12 AM PST Approved by: Max Ralph MD on 12/28/2021 8:12 AM PST Station ID: [id number]
== END 2021-12-28 04:43 | disposition home or self-care (01) ==
LOC: ED 21:52
DX: B34.8 Other viral infections of unspecified site (principal); Z20.822 Contact with and (suspected) exposure to COVID-19
CPT/HCPCS: 36415; 80053; 82803; 83880; 85025; 87040; 87633; 93005; 94640; 94664; 99284